=== PATIENT | male | born 1955 | race Caucasian/White ===

== ENCOUNTER 2023-06-16 05:40 | Outpatient (CLI) | payer MEDICARE ==
[~2023-06-16] VITALS: Ht 177.8 cm; Wt 85.3 kg
[2023-06-17] MEDS ORDERED: LEVO200C2 PO (10:55)
[2023-06-17] MEDS ORDERED: ACET-3075 PO (10:55)
== END 2023-06-17 11:01 | disposition home or self-care (01) ==
LOC: PREOP 05:40
PROVIDERS: ATTEND Surgery
DX: Z01.818 Encounter for other preprocedural examination (principal)

== ENCOUNTER 2023-06-29 08:44 | Day surgery (SDC) | payer MEDICARE ==
[2023-06-29] VITALS (8 sets, daily range): BP systolic 89–145; BP diastolic 63–93
[~2023-06-29] VITALS: Ht 177.8 cm; Wt 85.3 kg
[~2023-06-29 08:44] MED LIST: ACET-3075 PO; LEVO200C2 PO
[2023-06-29] MEDS ORDERED: LACTATED RINGERS 1,000 ML IV STA (09:09)
[2023-06-29] MEDS ORDERED: PROPOFOL INJECTION 50 ML IV ONE (09:55)
[2023-06-29] MEDS ORDERED: MIDAZOLAM INJ 2 MG/2 ML VIAL ONE (09:55)
--- NOTE | 2023-06-29 10:32 | Progress Note-Post Operative ---
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
--- NOTE | 2023-06-29 10:35 | Discharge Inst-Simple/Standard ---
Discharge Inst-Standard Patient Instructions/Follow Up Plan of Care/Instructions/FU: Saskia 2 weeks Activity as Tolerated: Yes Discharge Diet: Regular Diet DAVID LAZARO DO Jun 29, 2023 10:35
--- NOTE | 2023-06-29 12:28 | Anesthesia-General Post-Op ---
MAC Patient Condition Mental Status/LOC: Same as Preop Cardiovascular: Satisfactory Nausea/Vomiting: Absent Respiratory: Satisfactory Pain: Controlled Complications: Absent Post Op Complications Complications None Follow Up Care/Instructions Patient Instructions None needed. Anesthesiology Discharge Order Discharge Order Patient is doing well, no complaints, stable vital signs, no apparent adverse anesthesia problems. No complications reported per nursing. WALE CORNELIUS CRNA Jun 29, 2023 12:28
--- NOTE | 2023-06-29 15:42 | OPERATIVE REPORT ---
DATE OF SERVICE: 06/29/2023 PREOPERATIVE DIAGNOSIS: Positive Cologuard test. POSTOPERATIVE DIAGNOSIS: Colon and rectal polyps. PROCEDURE: Colonoscopy with snare polypectomy x5. SURGEON: David Kruger DO ANESTHESIA: Per TOLL BRIDGE ATTENDANT. ESTIMATED BLOOD LOSS: None. COMPLICATIONS: None. SPECIMENS: Colon polyps. INDICATIONS: The patient is a 67-year-old male with positive Cologuard test. He understands risks and benefits of procedure and wished to proceed. Consent was signed in chart. DESCRIPTION OF PROCEDURE: The patient was taken to the endoscopy suite, placed in left lateral recumbent position. Timeout was performed. Digital rectal exam was performed noting palpable polyps inside the rectum. No other masses or ulcerations. Scope was inserted in the rectum, advanced all the way to the cecum with minimal difficulty. Prep was adequate. Scope was slowly retracted back. No polyps, masses or ulcerations within the cecum and the ascending colon. In the transverse colon, a small polyp was present, which snare polypectomy was performed. Scope was then continuously retracted back. No polyps, masses or ulcerations within the remainder of the transverse and descending colon. Sigmoid colon had a polyp, which snare polypectomy was performed. Scope was then continuously retracted back to the rectum where there were 2 small polyps, which snare polypectomies were performed. Scope was retroflexed noting the palpable polyp just distal to the dentate line. Scope was returned to its normal position. Snare polypectomy was performed. Scope was then slowly retracted back until completely removed. The patient tolerated the procedure well without complications, taken to recovery room in stable condition. RECOMMENDATIONS: I would recommend a flexible sigmoidoscopy in one year just to make sure this has been eradicated. Would repeat colonoscopy in 5 years due to polyps. Any issues, be seen at that time. Job ID: [id number] DocumentID: [id number] Dictated Date: 06/29/2023 10:31:51 Agricultural Equipment Test Engineer Date: 06/29/2023 15:41:00 Dictated By: DAVID KRUGER DO
== END 2023-06-29 11:30 | disposition home or self-care (01) ==
LOC: ENDO 08:44
PROVIDERS: ATTEND Surgery
DX: D12.3 Benign neoplasm of transverse colon (principal); D12.8 Benign neoplasm of rectum; K63.5 Polyp of colon; R19.5 Other fecal abnormalities; Z28.310 Unvaccinated for COVID-19
CPT/HCPCS: 88305